=== PATIENT | female | born 1950 | race Caucasian/White ===

== ENCOUNTER → 2018-10-15 | Outpatient (REF) | payer MEDICARE, OTHER ==
[~2018-10-15] MED LIST: ATOR1TAB19 PO; CLAR10CA3 PO; COUM2.5T17 PO; CYCL10TA PO; ENAB15TA PO; FISH5CAP PO; FLUCINONIDE TOP; KETO0.05 TOP; LEVO75TA4 PO; MELO7.5T7 PO; METR0.00 TOP; PERC5TAB12 PO; TYLE325T5 PO; [UNRECOGNIZED DRUG - OTHER]
[2018-10-15 16:02] LABS: PLATELET COUNT, AUTOMATED 241 10^3/uL (150-450)
[2018-10-15 16:14] LABS: INR 0.93; PROTHROMBIN TIME 12.2 SECONDS (11.8-14.0)
[2018-10-15 16:15] LABS: PARTIAL THROMBOPLASTIN TIME 29.9 SECONDS (25.0-38.4)
== END ==
LOC: M LABDRAW1 14:56
PROVIDERS: ATTEND Physician Assistant
DX: Z01.812 Encounter for preprocedural laboratory examination (principal); Z79.01 Long term (current) use of anticoagulants

== ENCOUNTER → 2019-11-21 | Outpatient (CLI) | payer MEDICARE, OTHER ==
[~2019-11-21] MED LIST changes: +CYCL-707 PO; -CYCL10TA PO
[2019-11-21 13:19] LABS: PLATELET COUNT, AUTOMATED 296 10^3/uL (150-450)
[2019-11-21 13:30] LABS: INR 0.9; PROTHROMBIN TIME 12.3 SECONDS (12.5-14.3)
[2019-11-21 13:31] LABS: PARTIAL THROMBOPLASTIN TIME 29.6 SECONDS (24.2-38.5)
== END ==
LOC: M WUC 10:45
PROVIDERS: ATTEND Physician Assistant
DX: M51.27 Other intervertebral disc displacement, lumbosacral region (principal); Z79.01 Long term (current) use of anticoagulants

== ENCOUNTER → 2020-01-25 | Outpatient (CLI) | payer MEDICARE, OTHER | LOC: M LABSMTC 09:39 | PROVIDERS: ATTEND Physical Medicine & Rehabilitation | DX: Z01.812 Encounter for preprocedural laboratory examination (principal); Z20.828 Contact with and (suspected) exposure to other viral communicable diseases ==